=== PATIENT | female | born 1960 | race Caucasian/White ===

== ENCOUNTER 2020-06-30 17:33 | Emergency (ER) | payer MEDICAID ==
[~2020-06-30] VITALS: Ht 152.4 cm; Wt 60.8 kg
[2020-06-30 19:04] VITALS: BP 175/73; Ht 152.4 cm; Wt 60.8 kg
== END 2020-06-30 20:47 | disposition home or self-care (01) ==
LOC: ED 17:33
DX: S52.502A Unspecified fracture of the lower end of left radius, initial encounter for closed fracture (principal); R55 Syncope and collapse; Z98.890 Other specified postprocedural states; W11.XXXA Fall on and from ladder, initial encounter; Y93.89 Activity, other specified; Y92.89 Other specified places as the place of occurrence of the external cause; Y99.8 Other external cause status

== ENCOUNTER 2020-07-02 10:51 | Emergency (ER) | payer MEDICAID ==
[~2020-07-02] VITALS: Ht 152.4 cm; Wt 58.1 kg
[2020-07-02 10:58] VITALS: Ht 152.4 cm; Wt 58.1 kg
[2020-07-02 16:44] VITALS: BP 137/84
== END 2020-07-02 16:44 | disposition home or self-care (01) ==
LOC: ED 10:51
DX: S52.572A Other intraarticular fracture of lower end of left radius, initial encounter for closed fracture (principal); Z98.890 Other specified postprocedural states; W19.XXXA Unspecified fall, initial encounter; Y93.89 Activity, other specified; Y99.8 Other external cause status; Y92.89 Other specified places as the place of occurrence of the external cause
CPT/HCPCS: J2001